=== PATIENT | male | born 1995 | race Two or more races ===

== ENCOUNTER 2019-08-20 14:10 | Emergency (ER) | payer OTHER, SELFPAY ==
[~2019-08-20] VITALS: Ht 167.6 cm; Wt 59.0 kg
[2019-08-20] MEDS ORDERED: SODIUM CHLORIDE 0.9% 1,000 ML IV ONE ×2 (14:35→18:30)
[2019-08-20] MEDS ORDERED: LORAZEPAM 2MG/ML CPJ IM ONE (14:45)
[2019-08-20] MEDS ORDERED: OLANZAPINE 10 MG/VIAL IM ONE (14:45)
[2019-08-20 15:19] LABS: BASOPHILS % 0.6 % (0.0-2.0); HEMOGLOBIN. 11.5 g/dL (14.0-18.0); LYMPHOCYTES % 16.2 % (20.0-50.0); MEAN CORPUSCULAR HEMOGLOBIN 31.1 pg (28.0-32.0); MEAN CORPUSCULAR VOLUME 91.8 fL (80.0-94.0); MEAN PLATELET VOLUME 7.6 fl (7.4-10.4); MONOCYTES % 7.7 % (2.0-8.0); NEUTROPHILS % 73.5 % (40.0-76.0); PLATELET 299 x1000/uL (130-400); RED BLOOD CELL COUNT 3.71 mill/uL (4.7-6.1); RED CELL DISTRIBUTION WIDTH 13.4 % (11.6-14.6)
[2019-08-20 15:25] LABS: CHLORIDE 109 mEq/L (98-107)
[2019-08-20 15:31] LABS: ETHANOL BLOOD < 10 mg/dL
[2019-08-20 16:40] LABS: METHADONE URINE SCREEN NEGATIVE (NEGATIVE); OPIATES URINE SCREEN NEGATIVE (NEGATIVE)
[2019-08-20 16:41] LABS: *AMPHETAMINES SCREEN URINE PRESUMTIVE POSITIVE (NEGATIVE); *BARBITURATES SCREEN URINE NEGATIVE (NEGATIVE); *BENZODIAZEPINES SCREEN URINE NEGATIVE (NEGATIVE); *COCAINE SCREEN URINE NEGATIVE (NEGATIVE); CANNABINOID URINE SCREEN NEGATIVE (NEGATIVE); PHENCYCLIDINE URINE SCREEN NEGATIVE (NEGATIVE)
[2019-08-21] MEDS ORDERED: SODIUM CHLORIDE 0.9% 1,000 ML IV ONE (08:30)
[2019-08-24] MEDS ORDERED: LORAZEPAM 2MG/ML CPJ IM PRN (10:15)
[2019-08-25] MEDS ORDERED: LORAZEPAM 1MG TABLET PO ONE (10:30)
[2019-08-26] MEDS ORDERED: LORAZEPAM 2MG/ML CPJ IM PRN (07:30)
[2019-08-26] MEDS ORDERED: LORAZEPAM 1MG TABLET PO ONE (19:30)
[2019-08-27] MEDS ORDERED: LORAZEPAM 1MG TABLET PO ONE (09:00)
[2019-08-27] MEDS ORDERED: LORAZEPAM 2MG/ML CPJ IM ONE (21:45)
[2019-08-28] MEDS ORDERED: LORAZEPAM 1MG TABLET PO ONE ×2 (08:45→09:06)
[2019-08-28] MEDS ORDERED: DIPHENOXYLATE/ATROPINE 2.5/0.025MG TABLET PO ONE (16:00)
[2019-08-28 20:17] VITALS: BP 98/53
== END 2019-08-28 20:40 | disposition home or self-care (01) ==
LOC: ER 14:10
DX: F23 Brief psychotic disorder (principal); F15.129 Other stimulant abuse with intoxication, unspecified; R45.851 Suicidal ideations; Z59.0 Homelessness; Z75.1 Person awaiting admission to adequate facility elsewhere; Z78.1 Physical restraint status
CPT/HCPCS: 36415; 70450; 80053; 80305; 80307; 80320; 80329; 85025; 96360; 96361; 96372; 99284; J2060; J3490; J7030; G0480